=== PATIENT | male | born 1965 | race Caucasian/White ===

== ENCOUNTER 2017-04-02 11:33 | Emergency (ER) | payer OTHER ==
[2017-04-02 11:38] VITALS: BP 115/78; BMI 23.7
--- NOTE | 2017-04-02 12:03 | DR.GENAD ---
HPI - PCP Primary Care Physician: NONE - HPI Comment HPI Comment: HEAVY MACHINE FELL ON LEG AND ROLL OVER THE FOOT. PAIN KNEE, LEG AND FOOT. ABRASIONS AND BRUISES PRESENT. CANNOT BEAR WEIGHT ON RT SIDE. TD UTD. - Complaint/Symptoms Chief Complaint Doctors Comments: RT FOOT PAIN. INJURY AT WORK BEFORE COMING. Chief Complaint:: PT RIGHT FOOT GOT RAN OVER AT WORK - Nurses notes reviewed Nurses Notes Review: Yes - Source History Provided: Patient - Mode of Arrival Mode of Arrival: Wheelchair - Timing Onset of Chief Complaint: 04/02/17 Came on: Suddenly - Duration Duration: Constant Duration: Hours - Severity Severity: Moderate PMH - PMH Past Medical History: No Past Surgical History: Yes Surgical History: Appendectomy, Cholecystectomy - Family History History of Family Medical Conditions: No - Social History Does patient currently use any type of tobacco product: Yes Have you used tobacco products in the last 12 months: Yes Type of Tobacco Use: Cigarettes How many years tobacco product used: 10 Does any household member use tobacco: No Alcohol Use: None Do you use any recreational Drugs:: No Lives With: Family Lives Where: Home - infectious screening In the last 2 months have you had wt loss of >10#?: NO Have you had fever, night sweats or hemotysis?: No Have you traveled outside the country in the last 6 months?: No Isolation: Standard ROS - Review of Systems Constitutional: No Symptoms Reported Eyes: No Symptoms Reported ENTM: No Symptoms Reported Respiratoy: No Symptoms Reported Cardiovascular: No Symptoms Reported Gastrointestinal/Abdominal: No Symptoms Reported Genitourinary: No Symptoms Reported Neurological: No Symptoms Reported Musculoskeletal: Right, Leg, Knee, Ankle, Foot Integumentary: Bruises, Other (ABRASIONS) Hematologic/Lymphatic: No Symptoms Reported Endocrine: No Symptoms Reported All Other Systems: Reviewed and Negative PE - Vital Signs Vitals: Temperature 97.7 F Pulse Rate 105 Respiratory Rate 18 Blood Pressure 115/78 O2 Sat by Pulse Oximetry 100 - General Limitations: No Limitations General Appearance: Alert - Head Head Exam: Normal Inspection - Eyes Eye exam: Normal Appearance - ENT ENT Exam: Normal External Ear Exam External Ear Exam: Normal External Inspection Nose Exam: Normal Nose Exam Mouth Exam: Normal Inspection Throat Exam: Normal Inspection - Neck Neck Exam: Trachea Midline - Chest Chest Inspection: Symmetric Chest Wall Rise - Respiratory Respiratory Exam: Normal Lung Sounds Bilat Respiratory Exam: Bilateral Clear to Auscultation - Cardiovascular Cardiovascular Exam: Regular Rate, Normal Rhythm, Normal Heart Sounds - Abdominal Exam Abdominal Exam: Normal Inspection - Extremities Extremities Exam: Tenderness (RT ANKLE, FOOT, LEG AND KNEE.), Joint Swelling ( RT ANKLE SWELLING AND PAIN.) - Back Back Exam: Normal Inspection - Neurologic Neurological Exam: Alert, Oriented X3 - Psychiatric Psychiatric Exam: Anxious - Skin Skin Exam: Erythema, Other (ABRSION FOOT, RT AND BRUISES LEG AND FOOT RT.) MDM - Differential Diagnosis Differential Diagnosis: CONTUSION, ABRASION, SPRAIN, FRACTURE AND STRAIN RT LOWER EXTREMITY. Course - Treatment Treatment: SEE ORDERS. IM PAIN MED IN ED, PAIN DECREASING. ULNA BOAT PLACE IN ED. - Consultation Consultation Comments: DISCUSS PATIENT WITH DR. TIAN. HE WILL SEE PATIENT IN AM. - Education/Counseling Education/Counseling: Patient, Education Educated On: Treatment, Diagnosis, Needs for Follow Up ROR - Labs Reviewed Laboratory: Non-DOT Drug Screen Collected 04/02/17 12:28 - XRAY XRAY Interpreted by: Radiologist XRAY Findings: REPORT DISCUSS WITH PATIENT. - Diagnosis Discharge Problem: Contusion of right leg Qualifiers: Encounter type: initial encounter Qualified Code(s): S80.11XA - Contusion of right lower leg, initial encounter Contusion of right foot Qualifiers: Encounter type: initial encounter Qualified Code(s): S90.31XA - Contusion of right foot, initial encounter Abrasion of right foot Qualifiers: Encounter type: initial encounter Qualified Code(s): S90.811A - Abrasion, right foot, initial encounter Right ankle sprain Qualifiers: Encounter type: initial encounter Involved ligament of ankle: unspecified ligament Qualified Code(s): S93.401A - Sprain of unspecified ligament of right ankle, initial encounter Sprain of right knee Qualifiers: Encounter type: initial encounter Involved ligament of knee: unspecified ligament Qualified Code(s): S83.91XA - Sprain of unspecified site of right knee , initial encounter - Discharge Plan Disposition: 01 HOME, SELF-CARE Condition: Stable Prescriptions: Hydrocodone/Acet Elixir [LORTAB ELIXIR 7.5-325 MG/15 ML *] 7.5 ml PO Q6H PRN # 15 ml PRN Reason: Mupirocin Calcium Cream [BACTROBAN CREAM 2%] 1 applic EXT BID #30 gm - Follow ups/Referrals Follow ups/Referrals: [facility],None [Primary Care Provider] - 2 days ERIN TIAN [STAFF PHYSICIAN] - 04/03/17 - Instructions Instructions: Acute Ankle Sprain With Phase I Rehab-SportsMed, Knee Pain, Easy- to-Read Additional Instructions: RETURN TO ED IF WORSE. YOU ALSO HAVE ABRASION ON THE FOOT, BRUISES ON THE RIGHT LEG AND CONTUSION TO YOUR RIGHT LEG. ALSO SPRAIN RT FOOT.
[2017-04-02] MEDS ORDERED: MORPHINE SULFATE INJ 4 MG IM ONE (12:07)
[2017-04-02] MEDS ORDERED: ZOFRAN INJ 4 MG VIAL IM ONE (12:07)
[2017-04-02] MEDS ORDERED: ZOFRAN INJ 4 MG VIAL ONE (12:10)
[2017-04-02] MEDS ORDERED: MORPHINE SULFATE INJ 2 MG ONE (12:11)
--- NOTE | 2017-04-02 12:35 | RAD ---
HISTORY: Pain, trauma Study: Three views left ankle Comparison: None Findings: Normal alignment. No acute fracture or dislocation. There is soft tissue swelling over the lateral as pect of the lower leg. IMPRESSION: 1. Soft tissue swelling without acute osseous abnormality. Reported By:
--- NOTE | 2017-04-02 12:37 | RAD ---
HISTORY: Pain, trauma Study: Three views right foot Comparison: None Findings: Normal alignment. No acute fracture or dislocation. The soft tissues are unremarkable. IMPRESSION: 1. No acute osseous abnormality. Reported By:
--- NOTE | 2017-04-02 12:39 | RAD ---
Right tibia and fibula, two views Indication: Leg pain post trauma Comparison: None Findings: There is cortical discontinuity of the medial tibial plateau, suspicious for fracture. Dedi cated knee radiograph is recommended for further evaluation. The distal tibia and fibula are intact. No gross soft tissue injury is seen. Impression: Suspected fracture of the medial tibial plateau, for which dedicated knee radiographs are recommended for further evaluation. Reported By:
--- NOTE | 2017-04-02 13:22 | RAD ---
HISTORY: Injury right knee, blunt trauma Study: AP, lateral, oblique right knee Comparison: Tibia and fibula same date Findings: The lucency described in the medial tibial plateau on the tibia and fibula series is present but not as well demonstrated. It could represent a medial tibial plateau fracture or an osteochondral defect. CT may be of further diagnostic value. The distal femur, knee joint, and patella are intact. No join t effusion is present. A E medial tibial plateau fracture without an associated joint effusion would be somewhat unusual. IMPRESSION: The lucency identified on the tibia and fibula series is not as well demonstrated on this examination . It could be related to an osteochondral defect or a fracture. CT would be of further diagnostic sagrario ue. Reported By:
[2017-04-02] MEDS ORDERED: NEOSPORIN OINT ONE (14:04)
--- NOTE | 2017-04-02 14:41 | CT ---
HISTORY: Injury, right knee pain, abnormal plain film Study: CT right knee without contrast Comparison: Plain films same date Technique: Axial non contrast images with coronal and sagittal reformats. Dose reduction procedures w ere used with MA/kv adjusted for body size. Findings: Images of the right knee demonstrated the distal femur, patella, the joint, and proximal fibula to be intact. No joint erosion or joint effusion is identified. In the lateral 3rd of the medial tibial co ndyles there is a semi circular lucency extending from the anterior cortex almost to the post hiral lat eral cortex. It is of note that the margins of this lucency are smooth and sclerotic. This suggests a not significantly depressed tibial plateau fracture that may be old. Historical correlation as to pr ior knee injury would be helpful. Additional a the lack of a joint effusion would seem to mitigate ag ainst an acute fracture. The tibial plateau fracture without joint effusion or hemarthrosis would be un usual. Clinical correlation as to the presence or absence of point tenderness over the lateral asp ect of the tibial plateau may be helpful. IMPRESSION: Semi circular lucency as describe interior to posterolateral in the lateral aspect of the lateral tib ial plateau und associated with overlying soft tissue swelling and un associated with a joint effusio n and demonstrating smooth sclerotic margins. This may represent an old ununited tibial plateau fract ure. Clinical correlation as to the presence or absence of point tenderness over the lateral aspect o f the lateral tibial plateau should be of further diagnostic value. Historical correlation as to a hi story of prior significant knee trauma would also be helpful. Reported By:
== END 2017-04-02 16:30 | disposition home or self-care (01) ==
LOC: ER 11:43
DX: S80.11XA Contusion of right lower leg, initial encounter (principal); S90.31XA Contusion of right foot, initial encounter; S90.811A Abrasion, right foot, initial encounter; S93.401A Sprain of unspecified ligament of right ankle, initial encounter; S83.91XA Sprain of unspecified site of right knee, initial encounter; X58.XXXA Exposure to other specified factors, initial encounter; Y92.69 Other specified industrial and construction area as the place of occurrence of the external cause
CPT/HCPCS: 73560; 73590; 73610; 73630; 73700; 80305; 96372; 99283; J2270; J2405